=== PATIENT | male | born 1985 | race Caucasian/White ===

== ENCOUNTER 2016-10-03 09:53 | Emergency (ER) | payer OTHER ==
[2016-10-03] MEDS ORDERED: LIDOCAINE 1% INJ (10 MG/ML) 10 ML MDV INJ ONE (10:11)
[2016-10-03 10:23] VITALS: BP 102/80
--- NOTE | 2016-10-03 10:37 | ER Document Report ---
ED General - General Chief Complaint: Rectal Pain Stated Complaint: RECTAL PAIN Time Seen by Provider: 10/03/16 10:10 Notes: Patient presents with rectal pain. Patient states he recently had a surgical procedure on his lower back. He states that he had to take oxycodone for this procedure and made him constipated and he has developed a hemorrhoid. He states he has had a hemorrhoid for 1 week and is getting more and more painful. He states that the oxycodone does not help with the pain. He also states he has tried [id number] medications with no relief. He is also tried increasing his fiber and water intake with no relief. The pain is severe and constant. It is worse with movement or having a bowel movement and better with rest. It does not radiate. It is sharp. TRAVEL OUTSIDE OF THE [place] IN LAST 30 DAYS: No - Related Data Allergies/Adverse Reactions: erythromycin base Allergy (Verified 10/03/16 10:03) Past Medical History - Social History Smoking Status: Never Smoker Frequency of alcohol use: Occasional Drug Abuse: None Family History: Reviewed & Not Pertinent Patient has suicidal ideation: No Patient has homicidal ideation: No Renal/ Medical History: Denies: Hx Peritoneal Dialysis Review of Systems - Review of Systems Constitutional: denies: Chills, Fever Gastrointestinal: Constipation. denies: Abdominal pain, Diarrhea, Vomiting Genitourinary: denies: Burning, Dysuria -: Yes All other systems reviewed and negative Physical Exam - Vital signs Vitals: Temp Pulse Resp BP Pulse Ox 98.0 F 76 18 102/80 98 10/03/16 10:00 10/03/16 10:00 10/03/16 10:00 10/03/16 10:00 10/03/16 10:00 Interpretation: Normal - General General appearance: Appears well, Alert - HEENT Head: Normocephalic, Atraumatic Eyes: Normal Pupils: PERRL - Respiratory Respiratory status: No respiratory distress Chest status: Nontender Breath sounds: Normal Chest palpation: Normal - Cardiovascular Rhythm: Regular Heart sounds: Normal auscultation Murmur: No - Abdominal Inspection: Normal Distension: No distension Bowel sounds: Normal Tenderness: Nontender Organomegaly: No organomegaly - Rectal Hemorrhoids: External - Tender thrombosed - Back Back: Normal, Nontender - Extremities General upper extremity: Normal inspection, Nontender, Normal color, Normal ROM , Normal temperature General lower extremity: Normal inspection, Nontender, Normal color, Normal ROM , Normal temperature, Normal weight bearing. No: Nitin's sign - Neurological Neuro grossly intact: Yes Cognition: Normal Orientation: AAOx4 Esther Coma Scale Eye Opening: Spontaneous Mcintosh Coma Scale Verbal: Oriented Mcintosh Coma Scale Motor: Obeys Commands Mcintosh Coma Scale Total: 15 Speech: Normal Motor strength normal: LUE, RUE, LLE, RLE Sensory: Normal - Psychological Associated symptoms: Normal affect, Normal mood - Skin Skin Temperature: Warm Skin Moisture: Dry Skin Color: Normal Course - Vital Signs Vital signs: Temp Pulse Resp BP Pulse Ox 98.0 F 76 18 102/80 98 10/03/16 10:00 10/03/16 10:00 10/03/16 10:00 10/03/16 10:00 10/03/16 10:00 Procedures - Incision and Drainage Rectal Time completed: 10:30 Type: Simple Anesthetic type: 1% Lidocaine mL's of anesthetic: 2 Blade size: 11 I&D procedure: Sterile dressing applied Incision Method: Incision made by scalpel Notes: 10/03/16 10:36 Patient has a tender thrombosed hemorrhoid. Was incision and drainage of the thrombus within the hemorrhoid. Was anesthetized with lidocaine. An elliptical fishmouth incision was made and all clots were expressed. Patient tolerated procedure well and there were no complications. Discharge - Discharge Clinical Impression: Hemorrhoid thrombosis Condition: Stable Disposition: HOME, SELF-CARE Instructions: Incision of Thrombosed Hemorrhoids ([facility]) Additional Instructions: Please keep the area as clean as possible. Please use an [id number] stool softener and drink lots of water and use fiber. Please call Dr. Gimenez's office as soon as possible to arrange follow-up. Referrals: SWATI GIMENEZ MD [ACTIVE STAFF] - Follow up as needed
== END 2016-10-03 10:47 | disposition home or self-care (01) ==
LOC: ER 09:53
PROC: 0D9QXZZ Drainage of Anus, External Approach (ICD-10-PCS; principal; 2016-10-03)
DX: K64.5 Perianal venous thrombosis (principal)
CPT/HCPCS: 99283